=== PATIENT | female | born 1990 | race Caucasian/White ===

== ENCOUNTER 2019-07-16 16:31 | Emergency (ER) | payer SELFPAY ==
[~2019-07-16] VITALS: Ht 157.5 cm; Wt 59.0 kg
[2019-07-16 16:36] VITALS: BP 117/65
--- NOTE | 2019-07-16 17:15 | NUR ---
Patient ambulated to bed 8. RN evaluating patient at bedside.
--- NOTE | 2019-07-16 17:41 | NUR ---
c/o anterior chest wall pain with hacking cough x 3 days bodyaches, congestion, with thick phlegm
[2019-07-16] MEDS ORDERED: DEXAMETHASONE 10 MG/ML VIAL IM ONE (18:30)
[2019-07-16 18:47] VITALS: BP 117/65
--- NOTE | 2019-07-16 18:47 | NUR ---
PT LEFT WITHOUT TAKING MEDICATION
--- NOTE | 2019-07-16 18:47 | NUR ---
Patient discharged with v/s stable. Written and verbal after care instructions given and explained. Patient alert, oriented and verbalized understanding of instructions. Ambulatory with steady gait. All questions addressed prior to discharge. ID band removed. Patient advised to follow up with PMD. Rx of IBUPROFEN,PROMETHAZINE,ALBUTEROL,PREDNISONE given. Patient educated on indication of medication including possible reaction and side effects. Opportunity to ask questions provided and answered.
== END 2019-07-16 18:47 | disposition home or self-care (01) ==
LOC: MED 16:31
DX: J40 Bronchitis, not specified as acute or chronic (principal); J45.909 Unspecified asthma, uncomplicated; Z88.0 Allergy status to penicillin; Z98.890 Other specified postprocedural states
CPT/HCPCS: 71045; 99283

== ENCOUNTER 2019-08-20 06:52 | Emergency (ER) | payer SELFPAY ==
[~2019-08-20] VITALS: Ht 157.5 cm; Wt 56.7 kg
[2019-08-20 06:53] VITALS: BP 105/71
--- NOTE | 2019-08-20 06:53 | NUR ---
PT [facility] BLS. TAKEN TO BED 3
--- NOTE | 2019-08-20 07:10 | NUR ---
RECEIVED REPORT FROM ISAMAR ALCOCER.
--- NOTE | 2019-08-20 07:15 | NUR ---
DR MARES AT BEDSIDE EVALUATING PT.
--- NOTE | 2019-08-20 07:15 | NUR ---
body aches, diarrhea, and chills since yesterday.Pt awake, alert ,afibrile ambuatory with steady gait, sce, cbs, congested tonsils.moist mucous membrane , good skin turgor. pmhx ba
[2019-08-20] MEDS ORDERED: ACETAMINOPHEN 325 MG TAB PO ONE (07:20)
--- NOTE | 2019-08-20 07:28 | NUR ---
strep swab done. rn yari confirm flu swab was done already.
--- NOTE | 2019-08-20 08:14 | NUR ---
PT SLEEPING ON BED ,SIDE RAILS UP .
--- NOTE | 2019-08-20 08:29 | NUR ---
LABS CRITICAL RESULT POSITIVE FOR STREP A
--- NOTE | 2019-08-20 08:34 | NUR ---
DR MARES INFORMED OF LABS RESULT.
--- NOTE | 2019-08-20 08:38 | NUR ---
Dr. Reyna is evaluating the patient at bedside.
[2019-08-20] MEDS ORDERED: DEXAMETHASONE 10 MG/ML VIAL IM ONE (08:40)
[2019-08-20 09:06] VITALS: BP 110/71
--- NOTE | 2019-08-20 09:06 | NUR ---
Patient discharged with v/s stable. Written and verbal after care instructions given and explained regarding sorethroat. Patient alert, oriented and verbalized understanding of instructions. Ambulatory with steady gait. All questions addressed prior to discharge. ID band removed. Patient advised to follow up with PMD. Rx of norco, azithromycin and naprosyn given. Patient educated on indication of medication including possible reaction and side effects. Opportunity to ask questions provided and answered.Excuse from work given.
== END 2019-08-20 09:06 | disposition home or self-care (01) ==
LOC: MED 06:52
DX: J02.9 Acute pharyngitis, unspecified (principal); F17.200 Nicotine dependence, unspecified, uncomplicated; R19.7 Diarrhea, unspecified; J45.909 Unspecified asthma, uncomplicated; Z88.0 Allergy status to penicillin
CPT/HCPCS: 87081; 87804; 96372; 99283; J1100